=== PATIENT | male | born 1990 | race Caucasian/White ===

== ENCOUNTER 2017-02-06 16:47 | Emergency (ER) | payer MEDICAID ==
[~2017-02-06] VITALS: Ht 172.7 cm; Wt 128.0 kg
[2017-02-06] MEDS ORDERED: KETOROLAC 60MG/2ML VIAL IM ONE (22:15)
[2017-02-06 23:30] VITALS: BP 126/77
== END 2017-02-06 23:30 | disposition home or self-care (01) ==
LOC: ER 16:47
DX: M79.652 Pain in left thigh (principal); M62.838 Other muscle spasm; F12.10 Cannabis abuse, uncomplicated
CPT/HCPCS: 96372; 99283; J1885

== ENCOUNTER 2017-12-17 21:39 | Emergency (ER) | payer MEDICAID ==
[~2017-12-17] VITALS: Ht 175.3 cm; Wt 122.2 kg
[2017-12-18] MEDS ORDERED: KETOROLAC 60MG/2ML VIAL IM ONE (03:30)
[2017-12-18] MEDS ORDERED: HYDROCODONE/ACETAMINOPHEN 5/325MG TABLET PO ONE (04:45)
[2017-12-18 05:16] VITALS: BP 121/66
== END 2017-12-18 05:19 | disposition home or self-care (01) ==
LOC: ER 21:39
DX: M62.838 Other muscle spasm (principal); J45.909 Unspecified asthma, uncomplicated
CPT/HCPCS: 96372; 99283; J1885; Z7610

== ENCOUNTER 2019-10-19 10:07 | Emergency (ER) | payer MEDICAID ==
[~2019-10-19] VITALS: Ht 172.7 cm; Wt 102.0 kg
[2019-10-19] MEDS ORDERED: KETOROLAC 30MG/ML VIAL IM ONE (13:00)
[2019-10-19 13:47] VITALS: BP 137/85
== END 2019-10-19 13:48 | disposition home or self-care (01) ==
LOC: ER 10:07
DX: M77.9 Enthesopathy, unspecified (principal); J45.909 Unspecified asthma, uncomplicated; F17.200 Nicotine dependence, unspecified, uncomplicated
CPT/HCPCS: 73610; 96372; 99283; J1885

== ENCOUNTER 2019-10-29 05:26 | Emergency (ER) | payer MEDICAID, OTHER ==
[~2019-10-29] VITALS: Ht 172.7 cm; Wt 102.0 kg
[2019-10-29] MEDS ORDERED: KETOROLAC 30MG/ML VIAL IM ONE (06:30)
[2019-10-29 06:40] VITALS: BP 115/67
== END 2019-10-29 06:41 | disposition home or self-care (01) ==
LOC: ER 05:35
DX: M77.8 Other enthesopathies, not elsewhere classified (principal); J45.909 Unspecified asthma, uncomplicated
CPT/HCPCS: 96372; 99283; J1885

== ENCOUNTER 2020-01-21 14:16 | Emergency (ER) | payer OTHER ==
[~2020-01-21] VITALS: Ht 175.3 cm; Wt 102.0 kg
[2020-01-21] MEDS ORDERED: KETOROLAC 30MG/ML VIAL IM ONE (14:45)
[2020-01-21] MEDS ORDERED: HYDROCODONE/ACETAMINOPHEN 5/325MG TABLET PO ONE (15:00)
[2020-01-21 15:09] VITALS: BP 137/84
== END 2020-01-21 15:50 | disposition home or self-care (01) ==
LOC: ER 14:16
DX: S76.912A Strain of unspecified muscles, fascia and tendons at thigh level, left thigh, initial encounter (principal); J45.909 Unspecified asthma, uncomplicated; F12.10 Cannabis abuse, uncomplicated; Z98.890 Other specified postprocedural states; Y93.B9 Activity, other involving muscle strengthening exercises; Y93.02 Activity, running; Y92.89 Other specified places as the place of occurrence of the external cause
CPT/HCPCS: 96372; 99283; J1885